=== PATIENT | female | born 1955 | race Caucasian/White ===

== ENCOUNTER → 2020-02-20 | Outpatient (CLI) | payer BC ==
--- NOTE | 2020-02-25 15:17 | SLEEPCENT ---
NOCTURNAL POLYSOMNOGRAPHY DATE: 02/20/2020 ORDERED BY: SEE Kim Nocturnal polysomnography was performed for the evaluation of sleep physiology in this patient with a history of nonrestorative sleep. 7 hours and 38 minutes of data were reviewed. There were 357 minutes of sleep identified. Sleep latency was prolonged at 63.5 minutes. REM latency was prolonged at 121 minutes. Sleep architecture was fair with three REM cycles. Overall sleep efficiency was 78.8%. The electrocardiogram showed a sinus rhythm with an average heart rate of 68 beats per minute. EEG showed normal waveforms for wake and sleep. There were 226 respiratory events identified of 10 seconds in duration or greater for an apnea-hypopnea index of 38. The events were primarily obstructive, not exclusive to sleep stage nor body posture. Arousals resulted from respiratory events 13.9 times per hour with some limb activity, but arousals from the events were few. IMPRESSION: Severe obstructive sleep apnea syndrome (G47.33), apnea-hypopnea index 38. RECOMMENDATION: The patient should be encouraged to return to [facility]. In the interim, alcohol and sedative avoidance should be practiced and caution exercised during the operation of motor vehicles.
== END ==
LOC: M SLEEP 20:00
PROVIDERS: ATTEND Nurse Practitioner Family
DX: G47.33 Obstructive sleep apnea (adult) (pediatric) (principal)

== ENCOUNTER → 2020-03-23 | Outpatient (CLI) | payer BC ==
--- NOTE | 2020-03-25 09:43 | SLEEPCENT ---
NOCTURNAL POLYSOMNOGRAPHY DATE: 03/23/2020 ORDERED BY: SEE Kim Nocturnal polysomnography was performed for the titration of pressure therapy in this patient with obstructive sleep apnea syndrome with apnea-hypopnea index of 38. For testing a ResMed N30 nasal mask of medium size was used, 4 cm of water pressure were applied to the circuit, and the lights were extinguished. 7 hours and 53 minutes of data were reviewed. There were only 172 minutes of sleep identified. Sleep latency was quite prolonged at 104.5 minutes. REM latency was also prolonged at 315 minutes. Sleep architecture showed poor progression and one REM cycle. Overall sleep efficiency was 36.8%. The electrocardiogram showed a sinus rhythm with an average heart rate of 60 beats per minute. EEG showed normal waveforms for wake and sleep. Respiratory events were palliated with CPAP at a pressure of +10 and remaining measures of sleep physiology were normal. IMPRESSION: Obstructive sleep apnea syndrome (G47.33). RECOMMENDATION: Initiation of pressure therapy at 10 cm of water would seem appropriate. The patient slept quite poorly in the lab and if sleep symptoms persist, a full night retitration may be necessary to assure adequacy of pressure. Kasia Mahoney M.D.
== END ==
LOC: M SLEEP 20:00
PROVIDERS: ATTEND Nurse Practitioner Family
DX: G47.33 Obstructive sleep apnea (adult) (pediatric) (principal)